=== PATIENT | female | born 1980 | race Caucasian/White ===

== ENCOUNTER → 2016-10-14 | Outpatient (CLI) | payer OTHER | LOC: BMCIMAGING 12:44 | PROVIDERS: ATTEND Obstetrics & Gynecology | DX: N60.02 Solitary cyst of left breast (principal) ==

== ENCOUNTER → 2017-05-25 | Outpatient (CLI) | payer OTHER | LOC: FIMAGING 14:42 | PROVIDERS: ATTEND Obstetrics & Gynecology | DX: O09.522 Supervision of elderly multigravida, second trimester (principal); Z3A.13 13 weeks gestation of pregnancy; Z86.79 Personal history of other diseases of the circulatory system; Z82.0 Family history of epilepsy and other diseases of the nervous system; Z82.79 Family history of other congenital malformations, deformations and chromosomal abnormalities ==

== ENCOUNTER → 2017-07-08 | Outpatient (CLI) | payer OTHER | LOC: FIMAGING 13:12 | PROVIDERS: ATTEND Obstetrics & Gynecology | DX: O09.522 Supervision of elderly multigravida, second trimester (principal); Z3A.19 19 weeks gestation of pregnancy ==

== ENCOUNTER 2017-11-12 08:40 | Inpatient (IN) | payer OTHER ==
--- NOTE | 2017-11-12 09:20 | OBPROG ---
Labor Progress Note Assessment/Plan: Assessment: cat 1 fhr active labor 4/100/+1 station cephalic contractions q 3 minutes + bloody show desires epidural for pain relief Plan:expectant management, epidural for pain relief 11/12/17 09:21 Subjective/Intrapartum Course: 11/12/17 09:17 Doing well. Feeling regular contractions since 0300. Denies rom. Desires an epidural for pain relief. - SVE Dilation (cm): 4 Station: +1 - Contraction Pattern Assessment Current Contraction Pattern: Regular - FHR Assessment Navarrete FHR (bpm): 135 FHR Pattern Variability: Moderate FHR Category: 1 - AP Antepartum Course: 36 yo edc 11/27/2017 37.6 ga svts ama only history 11/12/17 09:20 - Physical Exam General Appearance: WD/WN, alert, no apparent distress Respiratory: chest non-tender, lungs clear, normal breath sounds Cardiac/Chest: regular rate, rhythm Abdomen: normal bowel sounds Extremities: normal range of motion, Arnold's sign DTR- Lower Extremities: Knee (R): 1+, Knee (L): 1+ (no clonus) Skin: normal color, warm/dry Neuro/Psych: no motor/sensory deficits, alert, normal mood/affect, oriented x 3 ICD10 Worksheet Patient Problems: Problems Problem Status Onset term spontaneous labor Acute
[2017-11-12] MEDS ORDERED: EPSOM SALT 454 GM TP PRN (09:24)
[2017-11-12] MEDS ORDERED: TERBUTALINE SULFATE 1 MG/ML VIAL IV PRN (09:24)
[2017-11-12] MEDS ORDERED: OLIVE OIL 118 ML BTL MISC PRN (09:24)
[2017-11-12] MEDS ORDERED: LR 1,000 ML IV PRN (09:24)
[2017-11-12] MEDS ORDERED: MISOPROSTOL 200 MCG TAB PR PRN (09:24)
[2017-11-12] MEDS ORDERED: OXYTOCIN/NORMAL SALINE 1,000 ML IV PRN (09:24)
[2017-11-12] MEDS ORDERED: PHENYLEPHRINE HCL 100 MCG/ML SYR IVP PRN (09:48)
[2017-11-12] MEDS ORDERED: NALOXONE HCL 0.4 MG/ML INJ IVP PRN (09:48)
[2017-11-12] MEDS ORDERED: ONDANSETRON 4 MG/2 ML VIAL IVP PRN (09:48)
[2017-11-12] MEDS ORDERED: PHENYLEPHRINE HCL 100 MCG/ML SYR ONE (09:53)
[2017-11-12] MEDS ORDERED: BUPIVACAINE 0.25% 30 ML SDV ONE (09:53)
[2017-11-12] MEDS ORDERED: fentaNYL 100 MCG/2 ML INJ ONE (09:54)
[2017-11-12] MEDS ORDERED: LR 500 ML IV SCH (10:00)
[2017-11-12] MEDS ORDERED: fentaNYL 2MCG/ML/BUP 0.1% RTU 100 ML EP SCH (10:00)
--- NOTE | 2017-11-12 10:02 | GHP ---
[f rep st] HISTORY AND PHYSICAL DATE OF ADMISSION: 11/12/2017 The patient is a 37-year-old, 2, para 1, with an EDC of 11/27/2017, who comes in on 11/12/2017 with complaints of contractions q.3 minutes. With a gestational age of 37-6/7 weeks. She has been routinely seeing [facility] since 7 weeks and 5 days on 04/15/2017. MEDICAL HISTORY: Patient is AMA and has a history of SVTs. History of cystitis and frequent UTIs, last one in 2005. SURGICAL HISTORY: Deviated septum in 2008, cath ablation for SVT in 2005, left breast ultrasound 10/23 secondary to lump that was benign. GYNECOLOGICAL HISTORY: Previous OCP use. Pap in 04/2016 was within normal limits. SOCIAL HISTORY: Denies alcohol use. Denies drug use. The patient is to [place] who is an clinical psychologist private practice. ALLERGIES: NKDA. MEDICATIONS: Zofran, Diclegis, vitamins with DHA. FAMILY HISTORY: Noncontributory. ROS x 10 non- contributory LABS: Patient is A positive, antibody negative. RPR is nonreactive. Rubella is immune. Hepatitis is negative. HIV is negative. Gonorrhea and chlamydia are negative. AFP was negative. One hour GTT was within normal limits. Patient is GBS negative. PHYSICAL ASSESSMENT: GENERAL: The patient is awake, alert, oriented x3. LUNGS : Clear bilaterally. Bowel sounds are positive in all 4 quadrants. EXTREMITIES: DTRs are 1+ bilaterally with no clonus. Homans sign is negative. PLAN OF CARE: 1. GBS negative. 2. Active labor. 3. Epidural for pain relief. 4. Expectant management of labor. /[id number]/MODL MTDD
[2017-11-12 10:05] LABS: PLATELET COUNT 151 10^3/uL (150-400)
--- NOTE | 2017-11-12 10:05 | PREANESOB ---
Obstetric Pre-Anesthesia Info - General Info Proposed Procedure: labor : 2 Para: 1 RACHAEL: 11/27/17 Gestational Age: 37 week(s) and 6 day(s) - Info Status: Full Term Monitors: External FHR Pattern: Reassuring - Labor Status Cervical Dilation per last OB SVE: 4 Station per last OB SVE: +1 Indications for Labor Analgesia: Pain Control Labor Epidural: Proposed Anesthesia ROS: hx svt , had ablation, now much better, otherwise neg Allergies/Adverse Reactions: Allergy/AdvReac Type Severity Reaction Status Date / Time No Known Allergies Allergy Unverified 11/12/17 09:24 Visit Medications: Generic Name Dose Route Start Last Admin Trade Name Freq PRN Reason Stop Dose Admin Diphenhydramine HCl 25 - 50 mg 11/12/17 09:48 Benadryl Injection IVP 05/11/18 09:47 Q6HRS PRN Itching Ephedrine Sulfate 10 mg 11/12/17 09:48 Ephedrine Sulfate IV 05/11/18 09:47 .Q2M PRN Hypotension Lactated Ringer's 1,000 mls @ 0 mls/hr 11/12/17 09:24 Lr IV 11/13/17 09:23 PRN PRN SEE PROTOCOL CONDITIONS Protocol Per Protocol Oxytocin/Sodium Chloride 1,000 mls @ 0 mls/hr 11/12/17 09:24 Pitocin 20 Units/Ns (Premix) IV PRN PRN Post Bleeding As Directed Lactated Ringer's 500 mls @ 0 mls/hr 11/12/17 10:00 Lr IV 05/11/18 09:59 CONT KEON As Directed Fentanyl/Bupivacaine HCl 100 mls @ 0 mls/hr 11/12/17 10:00 Fentanyl/Bupivacaine/Ns 2 Mcg/Ml 0.1% (Premix EP 11/22/17 09:59 CONT KEON Protocol As Directed Ibuprofen 600 mg 11/12/17 09:24 Motrin PO 05/11/18 09:23 Q6HRS PRN post , inflammation Magnesium Sulfate 454 gm 11/12/17 09:24 Epsom Salt TP 05/11/18 09:23 Q1H PRN perineal discomfort Misoprostol 800 - 1,000 mcg 11/12/17 09:24 Cytotec NV ONCE PRN Vaginal Atony/Bleeding Naloxone HCl 0.4 mg 11/12/17 09:48 Narcan IVP 05/11/18 09:47 PRN PRN Respiratory depression [place] Oil 118 ml 11/12/17 09:24 Sweet Oil MISC 05/11/18 09:23 ONCE PRN perineal massage Ondansetron HCl 4 mg 11/12/17 09:48 Zofran IVP 11/13/17 09:47 Q4HRS PRN Nausea/Vomiting, Can't Take PO Phenylephrine HCl 100 mcg 11/12/17 09:48 Neosynephrine IVP 05/11/18 09:47 .Q2M PRN Hypotension Terbutaline Sulfate 0.25 mg 11/12/17 09:24 Brethine IV 05/11/18 09:23 ONCE PRN Tachysystole Discontinued Medications Generic Name Dose Route Start Last Admin Trade Name Freq PRN Reason Stop Dose Admin Bupivacaine HCl Confirm 11/12/17 09:53 Sensorcaine 0.25% Sdv Administered 11/12/17 09:54 Dose 30 ml .ROUTE .STK-MED ONE Fentanyl Confirm 11/12/17 09:54 Sublimaze Administered 11/12/17 09:55 Dose 100 mcg .ROUTE .STK-MED ONE Phenylephrine HCl Confirm 11/12/17 09:53 Neosynephrine Administered 11/12/17 09:54 Dose 1,000 mcg .ROUTE .STK-MED ONE - Anesthesia History Response to Local Anesthetics: Normal Anesthesia & Operative History: No Prior Problems Family Anesthesia History: Negative - Social History Substance Use/Abuse: Denies - Vital Signs Height/Weight (Nursing): Height 162.56 cm Weight 66.678 kg - Focused Exam Neck exam: FROM Mallampati Score: Class 2 Mouth exam: normal dental/mouth exam Pulmonary: no respiratory distress Cardiovascular: regular rate and rhythym - Plan Consent Signed and on Chart: Yes Patient/Guardian Understands and Agrees to Plan: Yes Urgent/Emergent Case: Richelle crawford completed preop but documented later for safe timely pt care
[2017-11-12] MEDS ORDERED: fentaNYL 200 MCG, BUPIVACAINE 0.5% 20 ML in NS 100 ML EP SCH (11:00)
[2017-11-12] MEDS ORDERED: LIDO/EPI 2% **for epidural** 20 ML SDV ONE ×2 (11:04→11:44)
--- NOTE | 2017-11-12 11:15 | OBPROG ---
Labor Progress Note Assessment/Plan: Assessment:37 at 37w6d in labor. Now comfortable with epidural. Membranes intact. Plan: Expectant mgmt for now. 11/12/17 11:12 Subjective/Intrapartum Course: 11/12/17 09:17 Doing well. Feeling regular contractions since 0300. Denies rom. Desires an epidural for pain relief. 11/12/17 11:13 Doing well, feeling much better after epidural, nearly comfortable. Objective: 11/12/17 09:30 Patient ABO/Rh A POSITIVE 11/12/17 09:30 gen - pleasant female, NAD - SVE Dilation (cm): 6 Effacement (%): 80 Station: -3 Membranes: Intact - Contraction Pattern Assessment Current Contraction Pattern: Regular - AP Antepartum Course: 36 yo edc 11/27/2017 37.6 ga svts ama only history 11/12/17 09:20 Oxytocin Orders Assessment - Pre-Induction/Augmentation Assessment Gestational Age: 37 week(s) and 6 day(s) ICD10 Worksheet Patient Problems: Problems Problem Status Onset term spontaneous labor Acute
[2017-11-12] MEDS ORDERED: OXYTOCIN 10 UNIT/ML VIAL ONE (12:42)
[2017-11-12] MEDS ORDERED: AMMONIA AROMATIC 1 EACH AMP IH ONE (12:42)
[2017-11-12] MEDS ORDERED: LIDOCAINE 1% 300 MG/30 ML SDV ONE (12:42)
[2017-11-12] MEDS ORDERED: TERBUTALINE SULFATE 1 MG/ML VIAL ONE (12:42)
[2017-11-12] MEDS ORDERED: OLIVE OIL 118 ML BTL ONE (12:42)
[2017-11-12] MEDS ORDERED: MISOPROSTOL 200 MCG TAB ONE (12:43)
[2017-11-12] MEDS: IBUPROFEN 600 MG TAB PO PRN ×2 (13:04→19:57)
[2017-11-12] MEDS ORDERED: DOCUSATE SODIUM 100 MG CAP PO PRN (13:04)
[2017-11-12] MEDS ORDERED: SIMETHICONE 80 MG TAB CHEW PO PRN (13:04)
[2017-11-12] MEDS ORDERED: HYDROCORTISONE 0.5% CREAM TP PRN (13:04)
[2017-11-12] MEDS ORDERED: ACETAMINOPHEN 325 MG TAB PO PRN (13:04)
--- NOTE | 2017-11-12 13:14 | OBDEL ---
Info Type: Vaginal Presentation at Delivery: Vertex L&D Analgesia/Anesthesia Type: Epidural GBS+: No Intrapartum Medications: Generic Name Dose Route Start Last Admin Trade Name Freq PRN Reason Stop Dose Admin Ibuprofen 600 mg 11/12/17 09:24 11/12/17 13:04 Motrin PO 05/11/18 09:23 600 mg Q6HRS PRN Administration post , inflammation - Hospital Course Intrapartum: 11/12/17 09:17 Doing well. Feeling regular contractions since 0300. Denies rom. Desires an epidural for pain relief. 11/12/17 11:13 Doing well, feeling much better after epidural, nearly comfortable. Indications for Delivery: Spontaneous Labor (uncomplicated labor & delivery) Vaginal Delivery - Delivery Provider Delivery Physician/CNM: Livier Christine - Labor and Delivery Onset of Contractions Date: 11/12/17 Onset of Contractions Time: 07:00 Onset of Contractions Type: Spontaneous Rupture of Membranes Date: 11/12/17 Rupture of Membranes Time: 12:29 Rupture of Membranes Type: Artificial Amniotic Fluid Color: Clear Dilation Complete Date: 11/12/17 Dilation Complete Time: 12:20 Placenta Delivery Date: 11/12/17 Placenta Delivery Time: 12:42 Total Hours of Labor: 5 Non-surgical Procedures: Amniotomy Laceration: 2nd Degree Repair: 3-0, Vicryl Vaginal Sponge Count Correct: Yes Vaginal Needle Count Correct: Yes Vaginal Sweep Performed: Yes EBL: 400 Delivery Events: None Delivery Comment: Uncomplicated , pushed < 10 minutes. - Medications Labor Augmentation/Induction Methods Used: None Data RACHAEL: 11/27/17 Gestational Age: 37 week(s) and 6 day(s) [place] Delivery Date: 11/12/17 Delivery Time: 12:38 Sex of : Male Score (1 Min): 8 Score (5 Min): 9 ICD10 Worksheet Patient Problems: Problems Problem Status Onset (normal spontaneous vaginal delivery) Acute term spontaneous labor Acute - ICD10 Problem Qualifiers (1) (normal spontaneous vaginal delivery)
--- NOTE | 2017-11-12 16:34 | PDMN ---
Medical Necessity Medical necessity: Patient meets inpatient criteria per physician/CNM notes and [facility] [id number].
--- NOTE | 2017-11-12 18:54 | POSTANESTH ---
Post Anesthetic Evaluation Cardiovascular Status: Normal, Stable Respiratory Status: Normal, Stable Level of Consciousness/Mental Status: Can Participate in Eval Pain Control: Adequate, Prn Tx Ordered Nausea/Vomiting Control: Adequate, Prn Tx Ordered Complications Possibly Related to Anesthesia: None Noted (normal regression of epidural)
[2017-11-13 08:52] VITALS: BP 119/72
--- NOTE | 2017-11-13 09:46 | OBPP ---
Progress Note Assessment/Plan: Assessment: 37 y/o PPD #1 s/p doing well. Plan: D/c home today with Rx Ibuprofen and follow-up @ [facility] 4 and 6 weeks. 11/13/17 09:45 Subjective/ Course: 11/13/17 09:43 Pt is doing well today. She has min pain only requiring 1 Ibuprofen post . She is ambulating and voiding without difficulty and has min lochia. Breast feeding is going well and baby has a good latch. She has good support and would like to d/c home today after 24 hours. Objective: 11/13/17 01:00 Patient ABO/Rh A POSITIVE 11/12/17 09:30 Temp Pulse Resp BP Pulse Ox 36.7 C 76 14 119/72 96 11/13/17 08:51 11/13/17 08:51 11/13/17 08:51 11/13/17 08:51 11/13/17 08:51 Uterine Position/Fundal Height: Umbilicus -3 Uterine Tone: Firm Physical Exam - Physical Exam General Appearance: WD/WN, alert, no apparent distress Neck: non-tender, full range of motion, supple Respiratory: chest non-tender, lungs clear, normal breath sounds Cardiac/Chest: regular rate, rhythm Abdomen: normal bowel sounds Extremities: normal range of motion, swelling (no), Arnold's sign (neg)
--- NOTE | 2017-11-13 09:46 | OBGCSDC ---
General Delivery Information - General Info : 2 Para: 1 Abortions: 0 Type: Vaginal L&D Analgesia/Anesthesia Type: Epidural Admission Date: 11/12/17 Labs: Patient ABO/Rh A POSITIVE 11/12/17 09:30 Hct 46.6 % (38.0-47.0) 11/13/17 01:00 - Hospital Course Antepartum: 36 yo edc 11/27/2017 37.6 ga svts ama only history 11/12/17 09:20 Intrapartum: 11/12/17 09:17 Doing well. Feeling regular contractions since 0300. Denies rom. Desires an epidural for pain relief. 11/12/17 11:13 Doing well, feeling much better after epidural, nearly comfortable. : 11/13/17 09:43 Pt is doing well today. She has min pain only requiring 1 Ibuprofen post . She is ambulating and voiding without difficulty and has min lochia. Breast feeding is going well and baby has a good latch. She has good support and would like to d/c home today after 24 hours. Vaginal - Delivery Provider Delivery Physician/CNM: Livier Christine - Diagnosis Labor: Spontaneous Rupture of Membranes Type: Artificial Amniotic Fluid Color: Clear Laceration: 2nd Degree Repair: 3-0, Vicryl Delivery Events: None - Procedures Non-surgical Procedures: Amniotomy - Delivery Non-surgical Procedures: Amniotomy EBL: 400 Data RACHAEL: 11/27/17 Gestational Age: 38 week(s) and 0 day(s) Navar[place]te Delivery Date: 11/12/17 Delivery Time: 12:38 Sex of Infant: Male Score (1 Min): 8 Score (5 Min): 9 Discharge Information - Discharge Information Prescriptions: Ibuprofen [Motrin (*)] 600 mg PO Q6HRS PRN #30 tab PRN Reason: post , inflammation Condition: Good Instruction/Follow Up: Four Weeks, Six Weeks
== END 2017-11-13 15:45 | disposition home or self-care (01) | DRG 775 ==
LOC: FLD 08:40 → FOB 16:12
PROVIDERS: ADMIT Hospitalist; ATTEND Hospitalist
DX: O70.1 Second degree perineal laceration during delivery (principal); Z3A.38 38 weeks gestation of pregnancy; Z37.0 Single live birth
CPT/HCPCS: J2370; J2590; J3010; J3105